=== PATIENT | female | born 2000 | race Caucasian/White ===

== ENCOUNTER 2018-04-17 01:31 | Emergency (ER) | payer OTHER ==
[2018-04-17] MEDS ORDERED: ONDANSETRON 4 MG/2 ML VIAL IVP ONE (01:34)
[2018-04-17] MEDS ORDERED: NS 1,000 ML IV ONE (01:34)
--- NOTE | 2018-04-17 01:36 | EDPHY ---
H & P Time Seen by Provider: 04/17/18 01:40 HPI/ROS: HPI CHIEF COMPLAINT: Alcohol Intoxication HISTORY OF PRESENT ILLNESS: 17-year-old female presents emergency room by EMS for acute alcohol intoxication. History review of systems somewhat limited due to patient's clinical state she is highly intoxicated with alcohol. Unknown Past Medical history. It Is reported by EMS that she had multiple shots of Tequila. She presents with emesis down her clothes, she does respond to verbal stimuli. But is highly intoxicated. Reported blood glucose 135 by EMS. Past Medical History: Unknown medical history Past Surgical History: Unknown surgical history Social History: large amount of alcohol this evening otherwise unknown Family History: Unknown ROS REVIEW OF SYSTEMS: A comprehensive 10 point review of systems is otherwise negative aside from elements mentioned in the history of present illness. Exam Constitutional Intoxicated, triage nursing summary reviewed, vital signs reviewed, Sleepy, smells of alcohol Eyes normal conjunctivae and sclera, horizontal beating nystagmus consistent acute alcohol intoxication, otherwise pupils equal and react to light HENT normal inspection, atraumatic, moist mucus membranes, no epistaxis, neck supple/ no meningismus, no raccoon eyes. Respiratory clear to auscultation bilaterally, normal breath sounds, no respiratory distress, no wheezing. Cardiovascular rate normal, regular rhythm, no murmur, no edema, distal pulses normal. Gastrointestinal soft, non-tender, no rebound, no guarding, normal bowel sounds, no distension, no pulsatile mass. Genitourinary no CVA tenderness. Musculoskeletal no midline vertebral tenderness, full range of motion, no calf swelling, no tenderness of extremities, no meningismus, good pulses, neurovascularly intact. Skin pink, warm, & dry, no rash, skin atraumatic. Neurologic sleepy, intoxicated with alcohol,, alert and oriented x 3, AAOx3, moves all 4 extremities equally, motor intact, sensory intact, CN II-XII intact , , normal vision, normal speech. Psychiatric normal mood/affect. Heme/Lymph/Immune no lymphadenopathy. Differential Diagnosis: Includes but is not limited to in a particular order acute alcohol intoxication, alcohol abuse, dehydration, electrolyte abnormality , nausea vomiting from acute alcohol intoxication Medical Decision Making: Plan for this patient: IV establishment with IV fluid bolus 1 L normal saline, 4 mg IV Zofran for nausea, check serum alcohol level, monitor for worsening of condition, monitor for sobriety Re-evaluation: 0250: Serum alcohol 343. 0643: Patient ambulatory. Steady gait. Clinically sober and safe for discharge. Answers questions appropriately. Source: Patient, EMS Constitutional: Initial Vital Signs Temperature (C) 36.4 C 04/17/18 01:36 Heart Rate 83 04/17/18 01:36 Respiratory Rate 18 04/17/18 01:36 Blood Pressure 122/73 H 04/17/18 01:36 O2 Sat (%) 92 04/17/18 01:36 O2 Delivery Mode Room Air Allergies/Adverse Reactions: Unable to Assess Allergy (Unverified 04/17/18 01:38) Home Medications: Medication Instructions Recorded Unobtainable 04/17/18 Medical Decision Making - Data Points Laboratory Results: 04/17/18 01:40 Ethyl Alcohol 342 mg/dL H mg/dL (0-10) Medications Given: Discontinued Medications Sodium Chloride (Ns) 1,000 mls @ 0 mls/hr IV ONCE ONE PRN Reason: Wide Open Stop: 04/17/18 01:35 Last Admin: 04/17/18 01:30 Dose: 1,000 mls Ondansetron HCl (Zofran) 4 mg IVP EDNOW ONE Stop: 04/17/18 01:35 Last Admin: 04/17/18 01:47 Dose: 4 mg Departure - Departure Disposition: Home, Routine, Self-Care Clinical Impression: Alcoholic intoxication Qualifiers: Complication of substance-induced condition: uncomplicated Qualified Code(s): F10.920 - Alcohol use, unspecified with intoxication, uncomplicated Condition: Good Instructions: Alcohol Intoxication (ED), Abuse of Alcohol (ED) Referrals: Patient,NotPresent [Primary Care Provider] - As per Instructions
[2018-04-17 06:16] VITALS: BP 103/62
== END 2018-04-17 06:53 | disposition home or self-care (01) ==
LOC: EDUNIT#
DX: F10.920 Alcohol use, unspecified with intoxication, uncomplicated (principal); R11.10 Vomiting, unspecified
CPT/HCPCS: 96374; G0480; J2405